=== PATIENT | male | born 2000 | race Caucasian/White ===

== ENCOUNTER 2020-04-30 17:20 | Emergency (ER) | payer OTHER ==
[~2020-04-30] VITALS: Ht 170.2 cm; Wt 50.0 kg
[2020-04-30] MEDS ORDERED: LORAZEPAM 1MG TABLET PO ONE (18:30)
[2020-04-30] MEDS ORDERED: OLANZAPINE 10MG TABLET PO SCH (18:30)
[2020-04-30 19:42] LABS: BASOPHILS % 0.4 % (0.0-2.0); HEMATOCRIT. 42.8 % (42.0-52.0); HEMOGLOBIN. 14.5 g/dL (14.0-18.0); LYMPHOCYTES % 14.3 % (20.0-50.0); MEAN CORPUSCULAR HEMOGLOBIN 29.3 pg (28.0-32.0); MEAN CORPUSCULAR VOLUME 86.8 fL (80.0-94.0); MEAN PLATELET VOLUME 10.3 fl (7.4-10.4); MONOCYTES % 9.4 % (2.0-8.0); NEUTROPHILS % 75.9 % (40.0-76.0); PLATELET 141 x1000/uL (130-400); RED BLOOD CELL COUNT 4.93 mill/uL (4.7-6.1); RED CELL DISTRIBUTION WIDTH 12.7 % (11.6-14.6)
[2020-04-30 19:49] LABS: CHLORIDE 103 mEq/L (98-107)
[2020-04-30 19:56] LABS: ETHANOL BLOOD < 10 mg/dL
[2020-04-30] MEDS ORDERED: OLANZAPINE 10MG TABLET PO NR (23:40)
[2020-04-30] MEDS ORDERED: LORAZEPAM 1MG TABLET PO NR (23:41)
[2020-04-30] MEDS ORDERED: LORAZEPAM 2MG/ML CPJ IM ONE (23:45)
[2020-04-30] MEDS ORDERED: OLANZAPINE 10 MG/VIAL IM ONE (23:45)
[2020-04-30 23:53] LABS: *COCAINE SCREEN URINE NEGATIVE (NEGATIVE); METHADONE URINE SCREEN NEGATIVE (NEGATIVE); OPIATES URINE SCREEN NEGATIVE (NEGATIVE); PHENCYCLIDINE URINE SCREEN NEGATIVE (NEGATIVE)
[2020-04-30 23:54] LABS: *AMPHETAMINES SCREEN URINE NEGATIVE (NEGATIVE); *BARBITURATES SCREEN URINE NEGATIVE (NEGATIVE); *BENZODIAZEPINES SCREEN URINE NEGATIVE (NEGATIVE); CANNABINOID URINE SCREEN PRESUMTIVE POSITIVE (NEGATIVE)
[2020-05-01 09:30] VITALS: BP 126/84
== END 2020-05-01 17:49 | disposition home or self-care (01) ==
LOC: ER 17:20
DX: R45.851 Suicidal ideations (principal)
CPT/HCPCS: 36415; 80053; 80305; 80307; 80320; 80329; 84443; 85025; 96372; 99284; J2060; J3490; G0480